=== PATIENT | male | born 1945 | race Caucasian/White ===

== ENCOUNTER 2018-11-17 18:28 | Inpatient (IN) ==
[2018-11-17] MEDS ORDERED: Morphine Inj 4 MG/ML Vial IV.PUSH ONE (19:42)
[2018-11-17] MEDS ORDERED: Sod Chloride 0.9% Inj 1,000 ML IV.SIG ONE (19:42)
--- NOTE | 2018-11-17 20:01 | ED ---
HPI General Chief complaint: Abdominal Pain Stated complaint: abdominal pain Time Seen by Provider: 11/17/18 19:21 Source: patient, family and RN notes reviewed Mode of arrival: ambulatory History of Present Illness HPI narrative: 73yM presenting with abdominal pain. The patient states that he' s had multiple small bowel obstructions in the past, requiring surgery twice ( once in [place] and once in [place]). He states that this morning he began to have LUQ/ epigastric "cramping" abdominal pain which is constant, non- radiating, severe, not made better or worse by anything, gradual onset, and associated with nausea. He says that he had a small BM this morning but has not passed flatus since then. Denies fever or chills, vomiting, or dysuria. History of appendectomy in distant past. Related Data Home Medications Medication Instructions Recorded Confirmed bupropion HCl [Wellbutrin XL] 150 mg PO QAM 11/17/18 11/17/18 losartan 25 mg PO DAILY 11/17/18 11/17/18 omeprazole 20 mg PO DAILY 11/17/18 11/17/18 Allergies Allergy/AdvReac Type Severity Reaction Status Date / Time No Known Allergies Allergy Verified 11/17/18 19:42 Review of Systems ROS: all other systems reviewed are negative Constitutional Denies fever(s) Eyes Denies blurry vision ENT Denies nasal congestion Cardiovascular Denies chest pain Respiratory Denies cough Gastrointestinal Reports abdominal pain, Reports nausea and Denies vomiting Genitourinary Denies dysuria Musculoskeletal Denies back pain Neurologic Denies confusion Psychiatric Denies confusion [facility] Medical History Medical History Bowel obstruction (Acute) Surgical History Surgical History History of appendectomy (Acute) Social History Social History Substance History: No History of Abuse Second Hand Smoke Exposure: No Smoking Status: Never smoker How Often Do You Have a Drink Containing Alcohol: Monthly or less Recent Travel in [facility] within the Last 8 Weeks: No Recent Out of Country Travel within the Last 8 Weeks: No Immunization History Tetanus Immunization: <5 Years Exam Const Other: Appears uncomfortable HENMT Face and sinus: normal facial exam Eyes General: appearance normal, both eyes and all related structures Chest Chest: normal inspection of the chest Resp Effort & Inspection: normal respiratory effort Auscultation: no rhonchi and no wheezes Cardio Rate: regular rate Rhythm: regular rhythm GI Other: Soft, mildly distended, mild diffuse tenderness, no guarding or rebound Skin General: no rashes or lesions noted Neuro General: alert and awake Psych Affect: normal affect Course Initial Documented Vital Signs Temperature 98.0 F 11/17/18 18:31 Pulse Rate 122 H 11/17/18 18:31 Respiratory Rate 20 11/17/18 18:31 Blood Pressure 169/77 H 11/17/18 18:31 Pulse Oximetry 98 11/17/18 18:31 Last Documented Vital Signs Temperature 98.0 F 11/17/18 18:31 Pulse Rate 110 H 11/17/18 19:23 Respiratory Rate 18 11/17/18 19:23 Blood Pressure 139/76 11/17/18 19:23 Pulse Oximetry 98 11/17/18 19:23 Medical Decision Making MDM Narrative Medical decision making narrative: Assessment: 73yM presenting with abdominal pain Plan: Pain control, antiemetics, IV fluids Labs CT abd/ pelvis Addendum: Patient found to have partial SBO on CT scan. He reports that his pain and nausea are improved after medications. Will insert NGT, keep NPO, and keep in hospital for IV hydration. I spoke with Dr. Torre of general surgery, who will consult in AM; case also discussed with Dr. Nuno of [facility]. Patient and his understand and agree with plan. Medical Screen Exam Complete: Yes Emergency Medical Condition: Yes Differential Diagnosis Differential Diagnosis: Differential diagnosis includes, but is not limited to: SBO, ileus, colitis, diverticulitis, pancreatitis, gastritis Lab Data Lab results reviewed: Yes I reviewed the patient's lab results. Result diagrams: 11/17/18 19:44 11/17/18 19:44 Lab Results 11/17/18 11/17/18 11/17/18 Range/Units 19:44 19:44 19:44 WBC 11.9 H (4.0-11.0) th/mm3 RBC 4.92 (4.50-5.90) mil/mm3 Hgb 15.3 (13.0-17.0) gm/dL Hct 43.1 (39.0-51.0) % MCV 87.5 (80.0-100.0) fL MCH 31.2 (27.0-34.0) pg MCHC 35.6 (32.0-36.0) % RDW 13.9 (11.6-17.2) % Plt Count 241 (150-450) th/mm3 MPV 7.7 (7.0-11.0) fL Neut % (Auto) 78.8 H (16.0-70.0) % Lymph % (Auto) 12.0 (9.0-44.0) % [place] % (Auto) 8.5 H (0.0-8.0) % Eos % (Auto) 0.5 (0.0-4.0) % Baso % (Auto) 0.2 (0.0-2.0) % Neut # (Auto) 9.4 H (1.8-7.7) th/mm3 Lymph # (Auto) 1.4 (1.0-4.8) th/mm3 [place] # (Auto) 1.0 H (0.0-0.9) th/mm3 Eos # (Auto) 0.1 (0.0-0.4) th/mm3 Baso # (Auto) 0.0 (0.0-0.2) th/mm3 WBC Differential . Differential Comment Auto diff final Sodium 141 (136-145) meq/L Potassium 4.1 (3.5-5.1) meq/L Chloride 107 (98-107) meq/L Carbon Dioxide 25.7 (21.0-32.0) meq/L Anion Gap 8 (5-15) meq/L BUN 16 (7-18) mg/dL Creatinine 1.04 (0.60-1.30) mg/dL Estimated GFR 70 L (>89) mL/min Random Glucose 104 (74-106) mg/dL Calcium 9.6 (8.5-10.1) mg/dL Magnesium 2.1 (1.5-2.5) mg/dL Total Bilirubin 1.2 H (0.2-1.0) mg/dL AST 17 (15-37) U/L ALT 22 (12-78) U/L Alkaline Phosphatase 74 (45-117) U/L Total Protein 7.7 (6.4-8.2) g/dL Albumin 4.0 (3.4-5.0) g/dL Lipase 130 (73-393) U/L Urine Color Rox (Yellw/Straw) Urine Clarity Hazy H (Clear) Urine pH 5.0 (5.0-8.5) Ur Specific [place] 1.027 (1.002-1.035) Urine Protein Negative (Neg-Trace) mg/dL Urine Glucose (UA) Negative (Negative) mg/dL Urine Ketones 80 or greater H (Negative) mg/dL Urine Occult Blood Negative (Negative) Urine Nitrate Negative (Negative) Urine Bilirubin Negative (Negative) Urine Urobilinogen 0.2 (Less than 2) mg/dL Ur Leukocyte Esterase Negative (Negative) Urine RBC Less than 1 (0-3) /hpf Urine WBC 3 (0-5) /hpf Ur Squamous Epith Cells <1 (0-5) /hpf Urine Bacteria Occasional H (None) /hpf Hyaline Casts 8 (0-3) /lpf Urine Mucus Many H (Occasional) /lpf Micro UA Comment Culture not ind Ur Microscopic Review Not Reportable Urine Culture Comments Culture not ind Imaging Data Radiologist's impression: Abdomen/Pelvis CT 11/17/18 19:42 CONCLUSION: 1. Dilated stomach and proximal small bowel with air-fluid levels. There is distal small bowel decompression. Findings are most characteristic of at least a partial small bowel obstruction. Conceivably localized ileus could give this appearance as well. 2. Colonic diverticulosis without diverticulitis. Moderate degenerative disc disease in the spine. ECG Data Attestation: I personally reviewed and interpreted this ECG as follows: Interpretation: Rate: 96 BPM Rhythm: Sinus [place]: Normal Intervals: Normal intervals, no blocks, QTc 375 ms Q waves: III T waves: Inverted in III ST segments: No elevations or depressions Impression: Non-specific EKG, no previous EKG available for comparison. Discharge Plan Discharge Disposition Patient Disposition: ED Admit(ED Internal Use Only) Discharge Condition Condition: Stable Discharge Order Discharge Orders: ED Use Only Admit Order (Routine); Ordered 11/17/18 Ordered By: Elena Blankenship Discharge Details Diagnosis: Partial obstruction of small intestine Physicians Team ED Provider: Elena Blankenship Other Providers: Sajan Torre Rxs /Orders / Referrals /Forms Prescriptions: No Action losartan 25 mg Tablet 25 mg PO DAILY RF: 0 omeprazole 20 mg Capsule,Delayed Release(Dr/Ec) 20 mg PO DAILY RF: 0 bupropion HCl [Wellbutrin XL] 150 mg Tablet Extended Release 24 Hr 150 mg PO QAM RF: 0 Discharge Interventions Interventions: Vital Signs Last Done: 11/17/18 19:23 Status ED Status: Pending Admission
[2018-11-17 20:12] LABS: Baso % (Auto) 0.2 % (0.0-2.0); Eos # (Auto) 0.1 th/mm3 (0.0-0.4); Eos % (Auto) 0.5 % (0.0-4.0); Hematocrit 43.1 % (39.0-51.0); Hemoglobin 15.3 gm/dL (13.0-17.0); Lymph # (Auto) 1.4 th/mm3 (1.0-4.8); Mean Corpuscular HGB Conc 35.6 % (32.0-36.0); Mean Corpuscular Hemoglobin 31.2 pg (27.0-34.0); Mean Corpuscular Volume 87.5 fL (80.0-100.0); Mean Platelet Volume 7.7 fL (7.0-11.0); Mono % (Auto) 8.5 % (0.0-8.0); Neut # (Auto) 9.4 th/mm3 (1.8-7.7); Neut % (Auto) 78.8 % (16.0-70.0); Platelet Count 241 th/mm3 (150-450); Red Blood Count 4.92 mil/mm3 (4.50-5.90); Red Cell Distribution Width 13.9 % (11.6-17.2); White Blood Count 11.9 th/mm3 (4.0-11.0)
[2018-11-17 20:26] LABS: Bacteria,Urine Occasional /hpf; Bilirubin,Urine Negative (Negative); Clarity,Urine Hazy (Clear); Color,Urine Amber (Yellw/Straw); Glucose,Urine (UA) Negative (Negative); Hyaline Casts,Urine 8 /lpf (0-3); Leukocyte Esterase,Urine Negative (Negative); Mucus,Urine Many /lpf (Occasional); Nitrite,Urine Negative (Negative); Specific Gravity,Urine 1.027 (1.002-1.035); Squamous Epithelial Cell,Urine <1 /hpf (0-5)
[2018-11-17 20:27] LABS: Urobilinogen,Urine 0.2 mg/dL (Less than 2)
[2018-11-17 20:29] LABS: Anion Gap 8 meq/L (5-15); Aspartate Aminotransferase 17 U/L (15-37); Blood Urea Nitrogen 16 mg/dL (7-18); Calcium 9.6 mg/dL (8.5-10.1); Carbon Dioxide 25.7 meq/L (21.0-32.0); Chloride 107 meq/L (98-107); Glomerular Filtration Rate 70 mL/min (>89); Glucose,Random 104 mg/dL (74-106); Lipase 130 U/L (73-393); Magnesium 2.1 mg/dL (1.5-2.5); Potassium 4.1 meq/L (3.5-5.1); Sodium 141 meq/L (136-145)
[2018-11-17 20:33] LABS: Alanine Aminotransferase 22 U/L (12-78); Alkaline Phosphatase 74 U/L (45-117); Total Protein 7.7 g/dL (6.4-8.2)
--- NOTE | 2018-11-17 21:30 | CT ---
EXAM DATE: 11/17/2018 9:22 PM EST AGE/SEX: 73 years / Male INDICATIONS: Abdominal pain; possible obstruction. CLINICAL DATA: This is the patient's initial encounter. Patient reports that signs and symptoms have been present for 2 days and indicates a pain score of 7/10. MEDICAL/SURGICAL HISTORY: . Appendectomy. Colon resection. ORAL CONTRAST: No oral contrast ingested. RADIATION DOSE: 10.87 CTDI (mGy) COMPARISON: . TECHNIQUE: Multiple contiguous axial images were obtained through the abdomen and pelvis following b olus infusion of 96 ml Omnipaque 350 (iohexol) nonionic water-soluble contrast as a single exam dos e. No oral contrast ingested. Using automated exposure control and adjustment of the mA and/or kV ac cording to patient size, radiation dose was kept as low as reasonably achievable to obtain optimal di agnostic quality images. DICOM format image data is available electronically for review and comparis on. FINDINGS: There is minimal dependent atelectasis in the lungs. No acute findings in the liver, adrenals, kidney s or pancreas. There is an enhancing lesion in the spleen measuring 1.9 cm , possibly a hemangioma. Stomach is distended. There is distention of proximal small bowel loops up to a diameter of about 4.8 cm with air-fluid levels present. The distal small bowel is decompressed. There is no free fluid or free air. Colonic diverticula are noted without evidence for diverticulitis. CONCLUSION: 1. Dilated stomach and proximal small bowel with air-fluid levels. There is distal small bowel decom pression. Findings are most characteristic of at least a partial small bowel obstruction. Conceivably localized ileus could give this appearance as well. 2. Colonic diverticulosis without diverticulitis. Moderate degenerative disc disease in the spine. Electronically signed by: Chip Summers MD Board Certified Radiologist 11/17/2018 9:28 PM EST
--- NOTE | 2018-11-17 21:34 | ECG ---
Date Performed: 11/17/2018 Time Performed: 19:50:08 PTAGE: 73 years EKG: Sinus rhythm NORMAL ECG NO PREVIOUS TRACING DOCTOR: Richard Ross Interpretating Date/Time 11/17/2018 21:32:46
[2018-11-17] MEDS ORDERED: Morphine Sulfate Inj 2 MG/ML Vial IV.PUSH PRN (21:47)
[2018-11-17] MEDS ORDERED: Bisacodyl 10 MG Supp RECTAL PRN (21:47)
--- NOTE | 2018-11-17 21:49 | P.HPIM ---
History of Present Illness Primary Care Physician: Greg Harris History of Present Illness: This is a 73-year-old male with a PMH of SBO requiring Surgical Intervention x2 who presented to the ER w/ complaints of abdominal pain x1 day. Notes pain is mostly in LLQ, constant, cramping, 9/10, non-radiating, associated w/ nausea/vomiting. Denies fever or chills, no diarrhea. +small BM today. On arrival, BP 169/77, HR 122, O2 sat 98% on RA, Afebrile. WBC 11.9. Chemistry unremarkable except for GFR 70. UA negative for UTI. CT Abdomen/Pelvis dilated stomach and proximal small bowel with air- fluid levels, distal small bowel decompression findings characteristic of partial small bowel obstruction. S/p NGT placement in ER. Dr. Torre consulted for eval. Diagnosis (1) Partial obstruction of small intestine: (2) HTN (hypertension): (3) Leukocytosis: Review of Systems PAST FAMILY HISTORY: Reviewed. No h/o DM or CAD Review of Systems: all other systems reviewed are negative [facility] Medical History Medical History Bowel obstruction (Acute) Surgical History Surgical History History of appendectomy (Acute) Social History Social History Substance History: No History of Abuse Second Hand Smoke Exposure: No Smoking Status: Never smoker How Often Do You Have a Drink Containing Alcohol: Monthly or less Recent Travel in [facility] within the Last 8 Weeks: No Recent Out of Country Travel within the Last 8 Weeks: No Immunization History Tetanus Immunization: <5 Years Medications and Allergies Allergies Allergy/AdvReac Type Severity Reaction Status Date / Time No Known Allergies Allergy Verified 11/17/18 19:42 Home Medications Medication Instructions Recorded Confirmed Type bupropion HCl [Wellbutrin XL] 150 mg PO QAM 11/17/18 11/17/18 History losartan 25 mg PO DAILY 11/17/18 11/17/18 History omeprazole 20 mg PO DAILY 11/17/18 11/17/18 History Active Medications: Active Medications Bisacodyl (Dulcolax Supp) 10 mg RECTAL DAILY PRN PRN Reason: SEVERE CONSITIPATION Sodium Chloride (Ns Flush) 2 ml IV.FLUSH PRN PRN PRN Reason: FLUSH AFTER USING IV ACCESS Physical Exam Vital signs: Vital Signs 11/17/18 18:31 11/17/18 19:23 Temperature 98.0 F Pulse Rate 122 H 110 H Respiratory Rate 20 18 Blood Pressure 169/77 H 139/76 Pulse Oximetry 98 98 Intake & Output 11/17/18 11/17/18 11/18/18 06:59 18:59 06:59 Intake Total 1000 / 1000 Balance 1000 / 1000 Weight 95.254 kg Intake: IV 1000 / 1000 NS Inj 1,000 ML @ Wide Open IV. 1000 / 1000 SIG BOLUS ONE Rx#:[id number] Other: Date of Last Bowel Movement 11/17/18 Narrative: PE: GENERAL: Pleasant middle-aged white male in no acute distress. SKIN: Focused skin assessment warm and dry. HEENT: PERRLA, EOMI. No scleral icterus or conjunctival pallor. No lid lag or facial droop. CARDIOVASCULAR: Regular rate and rhythm. No obvious murmurs to auscultation. No chest tenderness to palpation. RESPIRATORY: No obvious rhonchi or wheezing. Clear to auscultation. Breath sounds equal bilaterally. GASTROINTESTINAL: Abdomen soft, mild generalized tenderness to palpation, +mild distention. BS normal. MUSCULOSKELETAL: Extremities without clubbing, cyanosis, or edema. No obvious deformities. NEUROLOGICAL: Awake, alert and oriented x4. No focal neurologic deficits. Moving both upper and lower extremities spontaneously. PSYCHIATRIC: Appropriate mood and affect. Insight and judgment normal. Results Labs CBC & Chem 7: 11/17/18 19:44 11/17/18 19:44 Imaging Impressions Abdomen/Pelvis CT 11/17/18 19:42 CONCLUSION: 1. Dilated stomach and proximal small bowel with air-fluid levels. There is distal small bowel decompression. Findings are most characteristic of at least a partial small bowel obstruction. Conceivably localized ileus could give this appearance as well. 2. Colonic diverticulosis without diverticulitis. Moderate degenerative disc disease in the spine. Caprini VTE Risk Assessment Caprini VTE Risk Assessment: No/Low Risk (score <= 1) Caprini Risk Assessment Model: Point Value = 1 Point Value = 2 Point Value = 3 Point Value = 5 Age 41-60 Minor surgery BMI > 25 kg/m2 Swollen legs Varicose veins or History of unexplained or recurrent spontaneous Oral contraceptives or hormone replacement Sepsis (< 1 month) Serious lung disease, including pneumonia (< 1 month) Abnormal pulmonary function Acute myocardial infarction Congestive heart failure (< 1 month) History of inflammatory bowel disease Medical patient at bed rest Age 61-74 Arthroscopic surgery Major open surgery (> 45 min) Laparoscopic surgery (> 45 min) Malignancy Confined to bed (> 72 hours) Immobilizing plaster cast Central venous access Age >= 75 History of VTE Family history of VTE Factor V Leiden Prothrombin [id number] Lupus anticoagulant Anticardiolipin antibodies Elevated serum homocysteine Heparin-induced thrombocytopenia Other congenital or acquired thrombophilia Stroke (< 1 month) Elective arthroplasty Hip, pelvis, or leg fracture Acute spinal cord injury (< 1 month) Prophylaxis Regimen: Total Risk Factor Score Risk Level Prophylaxis Regimen 0-1 Low Early ambulation 2 Moderate Order ONE of the following: *Sequential Compression Device (SCD) *Heparin 5000 units SQ BID 3-4 Higher Order ONE of the following medications: *Heparin 5000 units SQ TID *Enoxaparin/Lovenox 40 mg SQ daily (WT < 150 kg, CrCl > 30 mL/min) *Enoxaparin/Lovenox 30 mg SQ daily (WT < 150 kg, CrCl > 10-29 mL/min) *Enoxaparin/Lovenox 30 mg SQ BID (WT < 150 kg, CrCl > 30 mL/min) AND/OR *Sequential Compression Device (SCD) 5 or more Highest Order ONE of the following medications: *Heparin 5000 units SQ TID (Preferred with Epidurals) *Enoxaparin/Lovenox 40 mg SQ daily (WT < 150 kg, CrCl > 30 mL/min) *Enoxaparin/Lovenox 30 mg SQ daily (WT < 150 kg, CrCl > 10-29 mL/min) *Enoxaparin/Lovenox 30 mg SQ BID (WT < 150 kg, CrCl > 30 mL/min) AND *Sequential Compression Device (SCD) Assessment and Plan (1) Partial obstruction of small intestine: Code(s): K56.600 - Partial intestinal obstruction, unspecified as to cause Status: Acute (2) HTN (hypertension): Code(s): I10 - Essential (primary) hypertension Status: Acute (3) Leukocytosis: Code(s): D72.829 - Elevated white blood cell count, unspecified Status: Acute Plan A/P: 1. Partial SBO: H/o SBO w/ previous surgical intervention x2, +acute onset LLQ pain/cramping w/ nausea/vomiting, +small BM today, no gas. CT Abd/Pelvis w / findings consistent w/ partial SBO. NGT to be placed in ER. Dr. Torre consulted by ER physician for eval. NPO, IVF, Reglan, Morphine prn 2. HTN: Uncontrolled, BP 160's on arrival, likely compounded by pain complaints, hold PO medications, monitor BP, antihypertensives as needed for BP >180 3. Leukocytosis: WBC 11, likely reactive, no signs of infection, U/a negative , Afebrile, will repeat labs in am. 4. DVT Prophylaxis: SCD/Teds 5. Social work for d/c planning as needed. 6. Case discussed w/ ER physician at length, labs/records/imaging reviewed by me.
[2018-11-17] MEDS: Sod Chloride 0.9% Inj 1,000 ML IV.CONT SCH (23:19)
--- NOTE | 2018-11-18 01:59 | P.CONGS ---
[facility] Gen Surgery Consult Note Consult date: 11/18/18 Narrative: 73 yo M with h/o multiple small bowel obstructions, twice requiring surgery ( most recently in 2013), presents with abdominal pain since this morning. He had the same problem last fall and it was able to be managed conservatively at that time. PSH also includes remote appendectomy. One of the lysis of adhesions [place] [address]. NGT was placed in ED and he does feel significantly better after that. CT a/p shows at least partial small bowel obstruction. He is from [place] and here for the [facility]. Review of Systems All other systems reviewed negative except as stated in [facility] - History History Provided By: Patient - Medical History Medical History: Medical History (Last Reviewed 11/17/18 @ 19:58 by Elena Blankenship DO) Bowel obstruction - Surgical History Surgical History: Surgical History (Last Updated 11/17/18 @ 19:58 by Elena Blankenship DO) History of appendectomy - Tobacco History Second Hand Smoke Exposure: No Smoking Status: Never smoker - Alcohol History How Often Do You Have a Drink Containing Alcohol: Monthly or less - Substance Use History Substance History: No History of Abuse - Travel History Recent Travel in the [place] Within the Last 8 Weeks: No Recent Travel Out of the Country Within the Last 8 Weeks: No - Immunization History Tetanus Immunization: <5 Years Medications and Allergies Active Medications: Active Medications Bisacodyl (Dulcolax Supp) 10 mg RECTAL DAILY PRN PRN Reason: SEVERE CONSITIPATION Sodium Chloride (Ns Inj) 1,000 mls @ 100 mls/hr IV.CONT .Q10H [facility] Last Admin: 11/17/18 23:19 Dose: 100 mls/hr Metoclopramide HCl (Reglan Inj) 10 mg IV.PUSH Q8HR GENEVIEVE; Protocol Last Admin: 11/17/18 23:19 Dose: 10 mg Morphine Sulfate (Morphine Inj) 2 mg IV.PUSH Q4H PRN PRN Reason: PAIN SCALE 6 TO 10 Ondansetron HCl (Zofran Inj) 4 mg IV.PUSH Q6H PRN PRN Reason: NAUSEA OR VOMITING Sodium Chloride (Ns Flush) 2 ml IV.FLUSH PRN PRN PRN Reason: FLUSH AFTER USING IV ACCESS Sodium Chloride (Ns Flush) 2 ml IV.FLUSH BID GENEVIEVE Sodium Chloride (Ns Flush) 2 ml IV.FLUSH PRN PRN PRN Reason: FLUSH AFTER USING IV ACCESS Allergies Allergy/AdvReac Type Severity Reaction Status Date / Time No Known Allergies Allergy Verified 11/17/18 19:42 Home Medications Medication Instructions Recorded Confirmed Type bupropion HCl [Wellbutrin XL] 150 mg PO QAM 11/17/18 11/17/18 History losartan 25 mg PO DAILY 11/17/18 11/17/18 History omeprazole 20 mg PO DAILY 11/17/18 11/17/18 History Exam Vital signs: Vital Signs 11/17/18 18:31 11/17/18 19:23 11/17/18 21:44 Temperature 98.0 F Pulse Rate 122 H 110 H 90 Respiratory Rate 20 18 18 Blood Pressure 169/77 H 139/76 135/76 Pulse Oximetry 98 98 98 11/17/18 23:00 Temperature 97.7 F Pulse Rate 95 H Respiratory Rate 18 Blood Pressure 145/58 H Pulse Oximetry 93 L Intake & Output 11/17/18 11/17/18 11/18/18 06:59 18:59 06:59 Intake Total 1000 / 1000 Balance 1000 / 1000 Weight 95.254 kg Intake: IV 1000 / 1000 NS Inj 1,000 ML @ Wide Open IV. 1000 / 1000 SIG BOLUS ONE Rx#:[id number] Other: Date of Last Bowel Movement 11/17/18 Narrative: GENERAL: Awake and alert. No acute distress. Cooperative. HEAD: Normocephalic. Atraumatic. EYES: Pupils equal round and reactive to light bilaterally. No scleral icterus. ENT: Moist oral mucosa. NECK: Trachea midline. CHEST: Nonlabored breathing. No respiratory distress. CARDIOVASCULAR: Regular rate and rhythm. ABDOMEN: Soft, mild distention, mild tenderness to palpation diffusely. EXTREMITIES: No cyanosis or edema. SKIN: Warm, dry, nonjaundiced. Results - Labs 11/17/18 19:44 11/17/18 19:44 Laboratory Results - last 24 hr 11/17/18 11/17/18 11/17/18 19:44 19:44 19:44 WBC 11.9 H RBC 4.92 Hgb 15.3 Hct 43.1 MCV 87.5 MCH 31.2 MCHC 35.6 RDW 13.9 Plt Count 241 MPV 7.7 Neut % (Auto) 78.8 H Lymph % (Auto) 12.0 [place] % (Auto) 8.5 H Eos % (Auto) 0.5 Baso % (Auto) 0.2 Neut # (Auto) 9.4 H Lymph # (Auto) 1.4 [place] # (Auto) 1.0 H Eos # (Auto) 0.1 Baso # (Auto) 0.0 WBC Differential . Differential Comment Auto diff final Sodium 141 Potassium 4.1 Chloride 107 Carbon Dioxide 25.7 Anion Gap 8 BUN 16 Creatinine 1.04 Estimated GFR 70 L Random Glucose 104 Calcium 9.6 Magnesium 2.1 Total Bilirubin 1.2 H AST 17 ALT 22 Alkaline Phosphatase 74 Total Protein 7.7 Albumin 4.0 Lipase 130 Urine Color Rox Urine Clarity Hazy H Urine pH 5.0 Ur Specific [place] 1.027 Urine Protein Negative Urine Glucose (UA) Negative Urine Ketones 80 or greater H Urine Occult Blood Negative Urine Nitrate Negative Urine Bilirubin Negative Urine Urobilinogen 0.2 Ur Leukocyte Esterase Negative Urine RBC Less than 1 Urine WBC 3 Ur Squamous Epith Cells <1 Urine Bacteria Occasional H Hyaline Casts 8 Urine Mucus Many H Micro UA Comment Culture not ind Ur Microscopic Review Not Reportable Urine Culture Comments Culture not ind - Imaging Imaging: ITS Impressions Abdomen/Pelvis CT 11/17/18 19:42 CONCLUSION: 1. Dilated stomach and proximal small bowel with air-fluid levels. There is distal small bowel decompression. Findings are most characteristic of at least a partial small bowel obstruction. Conceivably localized ileus could give this appearance as well. 2. Colonic diverticulosis without diverticulitis. Moderate degenerative disc disease in the spine. CT scan - abdomen: report reviewed, image reviewed CT scan - pelvis: report reviewed, image reviewed Assessment and Plan - Assessment (1) Partial obstruction of small intestine Code(s): K56.600 - Partial intestinal obstruction, unspecified as to cause Status: Acute - Plan Conservative management at this time. Cont NGT/IVF/NPO. WIll likely order small bowel series tomorrow.
[2018-11-18 07:04] LABS: Baso % (Auto) 0.3 % (0.0-2.0); Eos # (Auto) 0.1 th/mm3 (0.0-0.4); Eos % (Auto) 0.7 % (0.0-4.0); Hematocrit 43.9 % (39.0-51.0); Hemoglobin 15.1 gm/dL (13.0-17.0); Lymph # (Auto) 1.4 th/mm3 (1.0-4.8); Lymph % (Auto) 13.5 % (9.0-44.0); Mean Corpuscular HGB Conc 34.3 % (32.0-36.0); Mean Corpuscular Hemoglobin 30.7 pg (27.0-34.0); Mean Corpuscular Volume 89.4 fL (80.0-100.0); Mean Platelet Volume 7.9 fL (7.0-11.0); Mono # (Auto) 1.1 th/mm3 (0.0-0.9); Mono % (Auto) 11.1 % (0.0-8.0); Neut # (Auto) 7.7 th/mm3 (1.8-7.7); Neut % (Auto) 74.4 % (16.0-70.0); Platelet Count 216 th/mm3 (150-450); Red Blood Count 4.91 mil/mm3 (4.50-5.90); White Blood Count 10.4 th/mm3 (4.0-11.0)
[2018-11-18 07:14] LABS: Albumin 3.8 g/dL (3.4-5.0); Anion Gap 10 meq/L (5-15); Aspartate Aminotransferase 15 U/L (15-37); Blood Urea Nitrogen 15 mg/dL (7-18); Carbon Dioxide 24.5 meq/L (21.0-32.0); Chloride 109 meq/L (98-107); Glomerular Filtration Rate 85 mL/min (>89); Glucose,Random 98 mg/dL (74-106); Potassium 3.9 meq/L (3.5-5.1); Sodium 143 meq/L (136-145)
[2018-11-18 07:17] LABS: Alanine Aminotransferase 21 U/L (12-78); Alkaline Phosphatase 75 U/L (45-117); Total Protein 7.2 g/dL (6.4-8.2)
[2018-11-18] MEDS: Sod Chloride 0.9% Inj 1,000 ML IV.CONT SCH ×2 (12:22→19:47)
--- NOTE | 2018-11-18 14:25 | P.PNGS ---
Subjective Interval history: He feels better today. Did pass some flatus. Still significant NG output. Physical Exam Vital signs: Vital Signs 11/17/18 18:31 11/17/18 19:23 11/17/18 21:44 Temperature 98.0 F Pulse Rate 122 H 110 H 90 Respiratory Rate 20 18 18 Blood Pressure 169/77 H 139/76 135/76 Pulse Oximetry 98 98 98 11/17/18 23:00 11/18/18 04:00 11/18/18 07:46 Temperature 97.7 F 98.1 F 97.8 F Pulse Rate 95 H 94 H 89 Respiratory Rate 18 18 20 Blood Pressure 145/58 H 131/63 124/65 Pulse Oximetry 93 L 95 93 L 11/18/18 12:18 Temperature 98.8 F Pulse Rate 83 Respiratory Rate 20 Blood Pressure 130/63 Pulse Oximetry 94 L Intake & Output 11/17/18 11/18/18 11/18/18 18:59 06:59 18:59 Intake Total 1000 / 1000 1000 / 1000 Output Total 185 / 0 Balance -850 / -850 1000 / 1000 Weight 95.254 kg 92.254 kg Intake: IV 1000 / 1000 1000 / 1000 NS Inj 1,000 ML @ 100 mls/hr IV 1000 / 1000 .CONT .Q10H GENEVIEVE Rx#:[id number] NS Inj 1,000 ML @ Wide Open IV. 1000 / 1000 SIG BOLUS ONE Rx#:[id number] Oral 0 / 0 Output: Urine 0 / 0 Gastric Drainage 1849 Left Nare Nasogastric Tube 1849 Other: Date of Last Bowel Movement 11/17/18 # Bowel Movements 0 Weight On Admission 92 kg Narrative: NAD Abd: soft, ntd Results - Labs 11/18/18 04:46 11/18/18 04:46 Laboratory Results - last 24 hr 11/17/18 11/17/18 11/17/18 19:44 19:44 19:44 WBC 11.9 H RBC 4.92 Hgb 15.3 Hct 43.1 MCV 87.5 MCH 31.2 MCHC 35.6 RDW 13.9 Plt Count 241 MPV 7.7 Neut % (Auto) 78.8 H Lymph % (Auto) 12.0 Sanders % (Auto) 8.5 H Eos % (Auto) 0.5 Baso % (Auto) 0.2 Neut # (Auto) 9.4 H Lymph # (Auto) 1.4 Sanders # (Auto) 1.0 H Eos # (Auto) 0.1 Baso # (Auto) 0.0 WBC Differential . Differential Comment Auto diff final Sodium 141 Potassium 4.1 Chloride 107 Carbon Dioxide 25.7 Anion Gap 8 BUN 16 Creatinine 1.04 Estimated GFR 70 L Random Glucose 104 Calcium 9.6 Magnesium 2.1 Total Bilirubin 1.2 H AST 17 ALT 22 Alkaline Phosphatase 74 Total Protein 7.7 Albumin 4.0 Lipase 130 Urine Color Rox Urine Clarity Hazy H Urine pH 5.0 Ur Specific [place] 1.027 Urine Protein Negative Urine Glucose (UA) Negative Urine Ketones 80 or greater H Urine Occult Blood Negative Urine Nitrate Negative Urine Bilirubin Negative Urine Urobilinogen 0.2 Ur Leukocyte Esterase Negative Urine RBC Less than 1 Urine WBC 3 Ur Squamous Epith Cells <1 Urine Bacteria Occasional H Hyaline Casts 8 Urine Mucus Many H Micro UA Comment Culture not ind Ur Microscopic Review Not Reportable Urine Culture Comments Culture not ind 11/18/18 11/18/18 04:46 04:46 WBC 10.4 RBC 4.91 Hgb 15.1 Hct 43.9 MCV 89.4 MCH 30.7 MCHC 34.3 RDW 14.0 Plt Count 216 MPV 7.9 Neut % (Auto) 74.4 H Lymph % (Auto) 13.5 Sanders % (Auto) 11.1 H Eos % (Auto) 0.7 Baso % (Auto) 0.3 Neut # (Auto) 7.7 Lymph # (Auto) 1.4 Sanders # (Auto) 1.1 H Eos # (Auto) 0.1 Baso # (Auto) 0.0 WBC Differential . Differential Comment Auto diff final Sodium 143 Potassium 3.9 Chloride 109 H Carbon Dioxide 24.5 Anion Gap 10 BUN 15 Creatinine 0.88 Estimated GFR 85 L Random Glucose 98 Calcium 9.0 Magnesium Total Bilirubin 1.0 AST 15 ALT 21 Alkaline Phosphatase 75 Total Protein 7.2 Albumin 3.8 Lipase Urine Color Urine Clarity Urine pH Ur Specific [place] Urine Protein Urine Glucose (UA) Urine Ketones Urine Occult Blood Urine Nitrate Urine Bilirubin Urine Urobilinogen Ur Leukocyte Esterase Urine RBC Urine WBC Ur Squamous Epith Cells Urine Bacteria Hyaline Casts Urine Mucus Micro UA Comment Ur Microscopic Review Urine Culture Comments - Imaging Imaging: ITS Impressions Abdomen/Pelvis CT 11/17/18 19:42 CONCLUSION: 1. Dilated stomach and proximal small bowel with air-fluid levels. There is distal small bowel decompression. Findings are most characteristic of at least a partial small bowel obstruction. Conceivably localized ileus could give this appearance as well. 2. Colonic diverticulosis without diverticulitis. Moderate degenerative disc disease in the spine. Assessment and Plan - Assessment (1) Partial obstruction of small intestine Code(s): K56.600 - Partial intestinal obstruction, unspecified as to cause Status: Acute - Plan SBO, likely partial. + flatus. Check small bowel series. Continue nonoperative management.
--- NOTE | 2018-11-18 16:35 | P.PNIM ---
Subjective Interval history: Patient in no acute distress. No specific complaints from him today. Tolerating diet. Physical Exam Vital signs: Vital Signs 11/17/18 18:31 11/17/18 19:23 11/17/18 21:44 Temperature 98.0 F Pulse Rate 122 H 110 H 90 Respiratory Rate 20 18 18 Blood Pressure 169/77 H 139/76 135/76 Pulse Oximetry 98 98 98 11/17/18 23:00 11/18/18 04:00 11/18/18 07:46 Temperature 97.7 F 98.1 F 97.8 F Pulse Rate 95 H 94 H 89 Respiratory Rate 18 18 20 Blood Pressure 145/58 H 131/63 124/65 Pulse Oximetry 93 L 95 93 L 11/18/18 12:18 Temperature 98.8 F Pulse Rate 83 Respiratory Rate 20 Blood Pressure 130/63 Pulse Oximetry 94 L Intake & Output 11/17/18 11/18/18 11/18/18 18:59 06:59 18:59 Intake Total 1000 / 1000 1000 / 1000 Output Total 185 / 1850 Balance -850 / -850 1000 / 1000 Weight 95.254 kg 92.254 kg Intake: IV 1000 / 1000 1000 / 1000 NS Inj 1,000 ML @ 100 mls/hr IV 1000 / 1000 .CONT .Q10H GENEVIEVE Rx#:[id number] NS Inj 1,000 ML @ Wide Open IV. 1000 / 1000 SIG BOLUS ONE Rx#:[id number] Oral 0 / 0 Output: Urine 0 / 0 Gastric Drainage 18490 Left Nare Nasogastric Tube 1849 Other: Date of Last Bowel Movement 11/17/18 # Bowel Movements 0 Weight On Admission 92 kg Narrative: Patient in no acute distress S1S2 CTA b/l Abd soft, bowel sounds present, No edema of exts No focal neuro deficits. Results Labs CBC & Chem 7: 11/18/18 04:46 11/19/18 06:17 Imaging Imaging: Impressions Abdomen/Pelvis CT 11/17/18 19:42 CONCLUSION: 1. Dilated stomach and proximal small bowel with air-fluid levels. There is distal small bowel decompression. Findings are most characteristic of at least a partial small bowel obstruction. Conceivably localized ileus could give this appearance as well. 2. Colonic diverticulosis without diverticulitis. Moderate degenerative disc disease in the spine. Assessment and Plan (1) Partial obstruction of small intestine: Code(s): K56.600 - Partial intestinal obstruction, unspecified as to cause Status: Acute Plan This patient is a 73 y/o male with a hx of small bowel obstruction requiring surgical intervention twice in the past who presented to the ED with complaints of abd pain x [address] scan of the abd/pelvis showed dilation of the stomach and prox small bowel with air fluid levels, distal small bowel decompression concerning for small bowel obstruction. 1. Partial Small bowel obstruction Hx of sbo with surgical intervention in the past. Imaging shows findings mentioned above Patient had a few bowel movements. NGT removed. Patient now tolerating a po diet. Cleared by surgery for discharge. Patient will be discharged home. He will follow up with his pcp in 1-2 weeks. [place] 2. HTN BP under control Continue home meds for HTN. 3. Leukocytosis Resolved. Afebrile, no signs of infection. CT scan shows diverticulosis without diverticulitis.
--- NOTE | 2018-11-18 19:34 | FL ---
EXAM DATE: 11/18/2018 7:13 PM EST AGE/SEX: 73 years / Male INDICATIONS: Abdominal pain CLINICAL DATA: This is the patient's initial encounter. Patient reports that signs and symptoms have been present for 2 days and indicates a pain score of 5/10. MEDICAL/SURGICAL HISTORY: None. . Appendectomy. Colon resection. COMPARISON: No prior exams available for comparison. FLUORO TIME: 0 IMAGE COUNT: 10 RADIATION DOSE: 00 DAP CONTRAST: FINDINGS: Proximal small bowel is mildly dilated. There is no significant obstruction. Contrast reaches large b owel distally within 2 hours. CONCLUSION: Dilated bowel proximally without evidence for obstruction. Electronically signed by: Chip Summers MD Board Certified Radiologist 11/18/2018 7:33 PM EST
[2018-11-18] MEDS ORDERED: Diatrizoate Meglum/Diatrizoate Sod Liq 120 ML Bottle (for RAD diag) NG/OG ONE (21:47)
[2018-11-19 01:41] VITALS: O2SAT 95
[2018-11-19 07:13] LABS: Calcium 8.4 mg/dL (8.5-10.1); Carbon Dioxide 22.5 meq/L (21.0-32.0); Potassium 3.5 meq/L (3.5-5.1)
[2018-11-19] MEDS: Sod Chloride 0.9% Inj 1,000 ML IV.CONT SCH (08:30)
--- NOTE | 2018-11-19 09:03 | P.PNIM ---
Subjective Interval history: Patient says he feels much better today. No complaints from him. He is now having bowel movements. Physical Exam Vital signs: Vital Signs 11/18/18 12:18 11/18/18 17:43 11/18/18 19:35 Temperature 98.8 F 97.8 F 97.4 F L Pulse Rate 83 95 H 109 H Respiratory Rate 20 20 18 Blood Pressure 130/63 159/76 H 154/76 H Pulse Oximetry 94 L 95 96 11/18/18 23:40 11/19/18 04:20 Temperature 97.8 F 98 F Pulse Rate 89 92 H Respiratory Rate 18 18 Blood Pressure 133/71 135/69 Pulse Oximetry 95 95 Intake & Output 11/18/18 11/19/18 11/19/18 18:59 06:59 18:59 Intake Total 1000 / 1000 1200 / 1200 Output Total 850 / 850 0 / 0 Balance 150 / 150 1200 / 1200 Weight 89.3 kg Intake: IV 1000 / 1000 1000 / 1000 NS Inj 1,000 ML @ 100 mls/hr IV 1000 / 1000 1000 / 1000 .CONT .Q10H GENEVIEVE Rx#:[id number] Oral 200 / 200 Output: Gastric Drainage 850 / 850 0 / 0 Left Nare Nasogastric Tube 850 / 850 0 / 0 Other: # Voids 2 5 Date of Last Bowel Movement 11/19/18 # Bowel Movements 10 Narrative: Patient in no acute distress NGT in left nare S1S2 CTA b/l Abd soft, bowel sounds present, No edema of exts No focal neuro deficits. Results Labs CBC & Chem 7: 11/18/18 04:46 11/19/18 06:17 Imaging Imaging: Impressions Small Bowel X-Ray 11/18/18 00:00 CONCLUSION: Dilated bowel proximally without evidence for obstruction. Assessment and Plan (1) Partial obstruction of small intestine: Code(s): K56.600 - Partial intestinal obstruction, unspecified as to cause Status: Acute Plan This patient is a 73 y/o male with a hx of small bowel obstruction requiring surgical intervention twice in the past who presented to the ED with complaints of abd pain x [address] scan of the abd/pelvis showed dilation of the stomach and prox small bowel with air fluid levels, distal small bowel decompression concerning for small bowel obstruction. 1. Partial Small bowel obstruction Hx of sbo with surgical intervention in the past. Patient is now having bowel movements. NGT still in place, will remove ngt today if OK with the surgical team. Plan is to start a PO diet and if patient is able to tolerate the diet then he can likely be discharged later today if cleared by the surgery team. Will follow up with surgery. Plan discussed with the nurse. 2. HTN SBP currently in the 130s. Continue to monitor and adjust medications as needed. 3. Leukocytosis Resolved. Afebrile, no signs of infection. CT scan shows diverticulosis without diverticulitis. SCDs for dvt prophylaxis. Progress Note: Quality VTE Deep Vein Thrombosis/Pulmonary Embolism Present on Admission: No
[2018-11-19 09:13] VITALS: RESP 17
--- NOTE | 2018-11-19 14:26 | P.PNGS ---
Subjective Interval history: Had multiple bowel movts since small bowel series. Just tolerated a regular meal. Physical Exam Vital signs: Vital Signs 11/18/18 17:43 11/18/18 19:35 11/18/18 23:40 Temperature 97.8 F 97.4 F L 97.8 F Pulse Rate 95 H 109 H 89 Respiratory Rate 20 18 18 Blood Pressure 159/76 H 154/76 H 133/71 Pulse Oximetry 95 96 95 11/19/18 04:20 11/19/18 08:00 Temperature 98 F 97.6 F Pulse Rate 92 H 85 Respiratory Rate 18 17 Blood Pressure 135/69 143/66 H Pulse Oximetry 95 95 Intake & Output 11/18/18 11/19/18 11/19/18 18:59 06:59 18:59 Intake Total 1000 / 1000 1200 / 1200 Output Total 850 / 850 0 / 0 Balance 150 / 150 1200 / 1200 Weight 89.3 kg Intake: IV 1000 / 1000 1000 / 1000 NS Inj 1,000 ML @ 100 mls/hr IV 1000 / 1000 1000 / 1000 .CONT .Q10H GENEVIEVE Rx#:[id number] Oral 200 / 200 Output: Gastric Drainage 850 / 850 0 / 0 Left Nare Nasogastric Tube 850 / 850 0 / 0 Other: # Voids 2 5 Date of Last Bowel Movement 11/19/18 11/19/18 # Bowel Movements 10 Narrative: NAD Abd: soft, ntd Results - Labs 11/18/18 04:46 11/19/18 06:17 Laboratory Results - last 24 hr 11/19/18 06:17 Sodium 144 Potassium 3.5 Chloride 111 H Carbon Dioxide 22.5 Anion Gap 11 BUN 21 H Creatinine 0.87 Estimated GFR 87 L Random Glucose 85 Calcium 8.4 L Magnesium 2.0 - Imaging Imaging: ITS Impressions Abdomen/Pelvis CT 11/17/18 19:42 CONCLUSION: 1. Dilated stomach and proximal small bowel with air-fluid levels. There is distal small bowel decompression. Findings are most characteristic of at least a partial small bowel obstruction. Conceivably localized ileus could give this appearance as well. 2. Colonic diverticulosis without diverticulitis. Moderate degenerative disc disease in the spine. Small Bowel X-Ray 11/18/18 00:00 CONCLUSION: Dilated bowel proximally without evidence for obstruction. Assessment and Plan - Assessment (1) Partial obstruction of small intestine Code(s): K56.600 - Partial intestinal obstruction, unspecified as to cause Status: Acute - Plan SBO, resolved. Clear for dc home. F/u on as needed basis. Avoid high fiber/ roughage such as large salads.
[2018-11-19 15:18] VITALS: BP 151/69; PULSE 89; TEMP 98.6
== END 2018-11-19 16:30 | disposition home or self-care (01) | DRG 390 ==
LOC: NEPC 18:28 → NEDA 21:44 → N06 22:42
PROVIDERS: ADMIT Hospitalist; ATTEND Hospitalist
DX: I10 Essential (primary) hypertension; D72.829 Elevated white blood cell count, unspecified; K56.600 Partial intestinal obstruction, unspecified as to cause
CPT/HCPCS: 74177; 74250; 80048; 80053; 81001; 83690; 83735; 85025; 90761; 90774; 90775; 90784; 93005; 96361; 96374; 96375; 99285; C8952; J2250; J2270; J2405; J2765; J7030; Q9963; Q9967